=== PATIENT | female | born 1985 | race Two or more races ===

== ENCOUNTER 2018-02-20 13:39 | Emergency (ER) | payer MEDICAID ==
[2018-02-20 14:24] VITALS: BP 154/71
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
== END 2018-02-20 15:15 | disposition home or self-care (01) ==
LOC: VM.ED 13:39
DX: S62.656A Nondisplaced fracture of middle phalanx of right little finger, initial encounter for closed fracture (principal); X50.9XXA Other and unspecified overexertion or strenuous movements or postures, initial encounter
CPT/HCPCS: 73140-F9; 99283